=== PATIENT | female | born 1970 | race African-American/Black ===

== ENCOUNTER 2018-01-06 06:49 | Emergency (ER) | payer BC, OTHER ==
[2018-01-06] MEDS ORDERED: diphenhydrAMINE 50 MG/ML VIAL ONE (07:01)
[2018-01-06] MEDS ORDERED: Metoclopramide HCl 10 MG/2 ML VIAL ONE (07:01)
== END 2018-01-06 08:45 | disposition home or self-care (01) ==
LOC: ERS 06:49
DX: G43.909 Migraine, unspecified, not intractable, without status migrainosus (principal); I10 Essential (primary) hypertension
CPT/HCPCS: 96365; 96375; J1200; J2765

== ENCOUNTER 2018-01-18 12:28 | Emergency (ER) | payer BC ==
[2018-01-18] MEDS ORDERED: Metoclopramide HCl 10 MG/2 ML VIAL ONE (12:57)
[2018-01-18] MEDS ORDERED: diphenhydrAMINE 50 MG/ML VIAL ONE (12:57)
[2018-01-18] MEDS ORDERED: Ketorolac Tromethamine 30 MG/ML VIAL ONE (12:57)
--- NOTE | 2018-01-18 14:17 | CT ---
CT HEAD WITHOUT CONTRAST: HISTORY: Headache. TECHNIQUE: Multiple axial tomograms obtained through the head without IV enhancement. FINDINGS: The ventricles have normal size and position. There is no evidence of intracranial mass or hemorrhag e. No evidence of infarct or edema. The sinuses and mastoids are aerated. IMPRESSION: No evidence of acute process. POS: [facility]
== END 2018-01-18 14:30 | disposition home or self-care (01) ==
LOC: SCSER 12:28
DX: G43.909 Migraine, unspecified, not intractable, without status migrainosus (principal); I10 Essential (primary) hypertension
CPT/HCPCS: 70450; 96365; 96375; J1200; J1885; J2765

== ENCOUNTER 2018-01-20 04:52 | Emergency (ER) | payer BC ==
[2018-01-20 06:14] LABS: #Eosinphils 0.1 thou/uL (0.0-0.7); #Lymphocytes 2.6 thou/uL (1.20-3.40); #Monocytes 0.7 thou/uL (0.11-0.59); #Neutrophils 4.1 thou/uL (1.40-6.50); %Basophils 0.5 % (0.0-1.0); %Lymphocytes 34.9 % (21.0-51.0); %Monocytes 8.7 % (0.0-10.0); %Neutrophils 54.9 % (42.0-75.0); Hemoglobin 13.8 g/dL (12.0-16.0); Mean Corpuscular HGB CONC 32.6 g/dL (32.0-36.0); Mean Corpuscular Hemoglobin 27.7 pg (27.0-31.0); Mean Corpuscular Volume 85.1 fl (81.0-99.0); Mean Platelet Volume 7.1 fL (7.4-10.4); Platelet Count 238 thou/uL (130-400); Red Blood Cell (RBC) Count 4.97 mill/uL (4.20-5.40); White Blood Cell (WBC) Count 7.5 thou/uL (4.8-10.8)
[2018-01-20 06:28] LABS: Bilirubin Negative (Negative); Blood, Urine Negative (Negative); Clarity CLEAR (Clear); Glucose, Urine (Dipstick) Negative (Negative); Leukocyte Negative (Negative); Nitrite Negative (Negative); Pregnancy Test - Urine (BHCG) Negative (Negative); Pregu Control Background? CLEAR/WHITE (CLR/WHITE); Pregu Control Bar Appear? YES (CONTROL BAR); Protein, Urine (Dipstick) Negative (Neg-Trace); Specific Gravity 1.018 (1.002-1.036); Specific Gravity, Urine 1.018 (1.002-1.036); Urobilinogen 0.2 mg/dL (0.2-1.0)
[2018-01-20 06:30] LABS: BHCG - Serum Negative (NEGATIVE); Pregs Control Background? CLEAR/WHITE (CLR/WHITE); Pregs Control Bar Appear? YES (CONTROL BAR)
[2018-01-20 06:33] LABS: ALT (SGPT) 20 U/L (8-55); AST (SGOT) 17 U/L (5-34); Albumin 4.2 g/dL (3.5-5.0); Alkaline Phosphatase 111 U/L (40-150); Anion Gap 9 mmol/L (10-20); BUN (Urea Nitrogen) 13 mg/dL (7.0-18.7); Bilirubin, Total 0.6 mg/dL (0.2-1.2); Calc. Creatinine Clearance 0 mL/min (70-130); Calcium 9.3 mg/dL (7.8-10.44); Carbon Dioxide 26 mmol/L (22-29); Chloride 111 mmol/L (98-107); Estimated GFR-MDRD Greater than 90; Globulin 2.8 g/dL (2.4-3.5); Glucose 92 mg/dL (70-105); Lipase 34 U/L (8-78); Potassium 4.1 mmol/L (3.5-5.1); Sodium 142 mmol/L (136-145)
--- NOTE | 2018-01-20 10:31 | CT ---
PRELIMINARY REPORT/[facility]/EMERGENTY AFTER-HOURS PROCEDURE CT Abdomen and Pelvis With Intravenous Contrast CLINICAL HISTORY: 47 years old, female; Signs and symptoms; Abdominal tenderness; Prior surgery; Surgery date: 6+ month s; Surgery type: Hysterectomy and ; Additional info: Previous on pacs. Er 5. Additional hist ory obtained from ems, f62 [place] the [place] via [facility] [place] C/O unwitnessed fall with cheek he matoma. Ems reports pt has had multiple falls in the past week. HX dementia. TECHNIQUE: Axial computed tomography images of the abdomen and pelvis with intravenous contrast. All CT scans at this facility use one or more dose reduction techniques, viz.: automated exposure control; ma/kV adj ustment per patient size (including targeted exams where dose is matched to indication; i.e. head); or iterative reconstruction technique. Coronal reformatted images were created and reviewed. CONTRAST: 100 mL of ISOVUE 370 administered intravenously. COMPARISON: No relevant prior studies available. FINDINGS: The lung bases are clear. No definite gallbladder abnormality by CT. No biliary tree dilation. There is fatty infiltration of the liver. Unremarkable appearance of the spleen, kidneys, adrenal glands, and pancreas. There are moderate inflammatory changes around the mid to lower descending colon, compatible with the diagnosis of diverticulitis.Prominent associated mucosal/wall thickening. No definite pericolonic ab scess. Other etiologies that could present with a similar appearance would include; other forms of colitis/f ocal inflammatory bowel diseases, and less likely bowel ischemia, or neoplasm. Appropriate followup r ecommended. No free air, ascites, or bowel distention. Possibility of somewhat thickened mucosa/wall in the dista l antrum of the stomach. This is a nonspecific appearance, and could be transient on CT, but could al so represent evidence for gastritis or peptic ulcer disease. Please correlate clinically. No evidence for abdominal aortic aneurysm. No retroperitoneal adenopathy. CT pelvis: The appendix is visualized and appears normal. No abnormal mass or fluid collection in the pelvis. IMPRESSION: Findings compatible with acute diverticulitis, see above details. No free air or bowel distention. Possible thickened mucosa/wall in the distal stomach, see above discussion. Normal appendix. Other findings discussed above. Thank you for allowing us to participate in the care of your patient. Dictated and Authenticated by: Josh Girard MD 01/20/2018 7:42 AM Central Time ([place] & [place]) FINAL REPORT EMERGENT AFTER HOURS CT ABDOMEN AND PELVIS WITH IV CONTRAST: DATE: 01/20/18. HISTORY: Generalized abdominal pain. Multiple falls recently. COMPARISON: 12/04/06. IMPRESSION: 1. Focal diverticulitis involving the distal descending colon. There is colonic wall thickening and multiple colonic diverticula as well as pericolonic inflammatory changes. Followup evaluation is re commended after treatment to ensure resolution of the wall thickening. 2. No Ct evidence of appendicitis. 3. Suggested thickening in the region of the gastric antrum, this could be related to incomplete dis tention. 4. Prominence in the region of the cervix which is more prominent than expected for this exam. Glez nahum, there was a similar finding on the study in 2006. There is evidence of hysterectomy. DIRECTOR OF HEMOPHILIA con sultation is suggested for further evaluation. This finding was discussed with Dr. Galvan in the [facility] on 01/20/18 at 0806 hours. 5. Findings are in agreement with the preliminary report by [facility]. However, [facility] did not mention promi nence in the region of the cervix. As mentioned above, this is an overall stable finding compared to 2006, although there has been interval hysterectomy from the prior exam. CODE CR POS: [facility]
[2018-01-20] MEDS ORDERED: ISOVUE-370 76%-LOCM 1 ML ONE (16:21)
== END 2018-01-20 08:02 | disposition home or self-care (01) ==
LOC: ERS 04:52
DX: K57.92 Diverticulitis of intestine, part unspecified, without perforation or abscess without bleeding (principal); I10 Essential (primary) hypertension; G43.909 Migraine, unspecified, not intractable, without status migrainosus; Z79.899 Other long term (current) drug therapy
CPT/HCPCS: 74177; 80053; 81003; 81025; 83690; 84703; 85025

== ENCOUNTER 2024-05-07 06:40 | Emergency (ER) | payer BC ==
[2024-05-07 07:52] LABS: #Basophils Less than 0.03 10x3/uL (0.0-0.2); #Eosinphils Less than 0.03 10x3/uL (0.0-0.7); %Basophils 0.4 % (0.0-1.0); %Eosinophils 0.2 % (0.0-10.0); %Monocytes 16.9 % (0.0-10.0); %Neutrophils 45.5 % (42.0-75.0); Hematocrit 47.5 % (36.0-47.0); Hemoglobin 15.4 g/dL (12.0-16.0); Mean Corpuscular HGB CONC 32.4 g/dL (32.0-36.0); Mean Corpuscular Hemoglobin 27.6 pg (27.0-31.0); Mean Corpuscular Volume 85.1 fL (78.0-98.0); Mean Platelet Volume 9.7 fL (7.4-10.4); Platelet Count 206 10x3/uL (130-400); Red Blood Cell (RBC) Count 5.58 mill/uL (4.20-5.40)
[2024-05-07 08:16] LABS: ALT (SGPT) 21 U/L (8-55); AST (SGOT) 19 U/L (5-34); Albumin 4.1 g/dL (3.5-5.0); Alkaline Phosphatase 66 U/L (40-110); Anion Gap 13 mmol/L (10-20); BUN (Urea Nitrogen) 12 mg/dL (9.8-20.1); Bilirubin, Total 0.7 mg/dL (0.2-1.2); Calc. Creatinine Clearance 0 mL/min (70-130); Calcium 9.2 mg/dL (7.8-10.44); Carbon Dioxide 20 mmol/L (22-29); Chloride 109 mmol/L (98-107); Estimated GFR 74; Globulin 3.3 g/dL (2.4-3.5); Glucose 105 mg/dL (70-105); Potassium 3.5 mmol/L (3.5-5.1); Protein, Total 7.4 g/dL (6.0-8.3); Sodium 138 mmol/L (136-145)
[2024-05-07 08:19] LABS: Troponin I Less than 0.010 ng/mL (< 0.028)
[2024-05-07 10:47] LABS: Bilirubin Negative (Negative); Blood, Urine Trace (Negative); CAUTI Indications for Culture Dysuria,urgency,freq; Clarity Clear (Clear); Glucose, Urine (Dipstick) Normal (Negative); Ketone, Urine Negative (Negative); Leukocyte 250 Leu/uL (Negative); Nitrite Negative (Negative); Protein, Urine (Dipstick) 20 mg/dL (Neg-Trace); RBC/HPF 0-3 HPF (0-3); Specific Gravity, Urine 1.024 (1.002-1.036); Urobilinogen Normal mg/dL (Less than 2)
[2024-05-07 10:48] LABS: Bacteria/HPF Rare-Few HPF (None Seen)
[2024-05-07 10:49] LABS: Urine Culture Reflex Yes Yes
== END 2024-05-07 11:50 | disposition home or self-care (01) ==
LOC: ERS 06:40
DX: R07.89 Other chest pain (principal); N39.0 Urinary tract infection, site not specified; I10 Essential (primary) hypertension; E11.9 Type 2 diabetes mellitus without complications; Z55.6 Problems related to health literacy; Z75.3 Unavailability and inaccessibility of health-care facilities
CPT/HCPCS: 36415; 71045; 80053; 81001; 84484; 85025; 85379; 87086; 93005